=== PATIENT | male | born 2000 | race Two or more races ===

== ENCOUNTER 2022-07-08 10:09 | Outpatient (CLI) | payer OTHER | END 2022-07-08 10:13 | disposition home or self-care (01) | LOC: RAD 10:09 | PROVIDERS: ATTEND General Practice | DX: I11.9 Hypertensive heart disease without heart failure (principal) ==

== ENCOUNTER 2023-01-05 23:59 | Emergency (ER) | payer OTHER ==
[~2023-01-05] VITALS: Ht 177.8 cm; Wt 107.0 kg
[2023-01-06] MEDS ORDERED: KETO10TA2 PO (01:51)
== END 2023-01-06 03:10 | disposition home or self-care (01) ==
LOC: ER 23:59
DX: S92.334A Nondisplaced fracture of third metatarsal bone, right foot, initial encounter for closed fracture (principal); W10.8XXA Fall (on) (from) other stairs and steps, initial encounter; Y93.89 Activity, other specified; Y92.018 Other place in single-family (private) house as the place of occurrence of the external cause; Y99.9 Unspecified external cause status

== ENCOUNTER → 2023-06-22 | Emergency (ER) | payer OTHER ==
[~2023-06-22] VITALS: Ht 177.8 cm; Wt 113.4 kg
[~2023-06-22] MED LIST: KETO10TA2 PO
== END | disposition left against medical advice (07) ==
LOC: ER 22:15
DX: Z53.21 Procedure and treatment not carried out due to patient leaving prior to being seen by health care provider (principal)

== ENCOUNTER 2023-07-28 09:24 | Outpatient (CLI) | payer OTHER | END 2023-07-28 09:27 | disposition home or self-care (01) | LOC: RAD 09:24 | DX: S72.301A Unspecified fracture of shaft of right femur, initial encounter for closed fracture (principal); S62.607A Fracture of unspecified phalanx of left little finger, initial encounter for closed fracture; S62.514A Nondisplaced fracture of proximal phalanx of right thumb, initial encounter for closed fracture ==

== ENCOUNTER 2024-02-10 09:21 | Outpatient (CLI) | payer OTHER | END 2024-02-10 09:27 | disposition home or self-care (01) | LOC: RAD 09:21 | DX: S72.361D Displaced segmental fracture of shaft of right femur, subsequent encounter for closed fracture with routine healing (principal); S62.501D Fracture of unspecified phalanx of right thumb, subsequent encounter for fracture with routine healing ==